=== PATIENT | male | born 1960 | race Caucasian/White ===

== ENCOUNTER 2017-07-18 10:56 | Emergency (ER) | payer MEDICAID ==
[~2017-07-18] VITALS: Ht 172.7 cm; Wt 106.6 kg
[~2017-07-18 10:56] MED LIST: ALPR0.254 PO; AMLO10TA2 PO; LORA1TAB12 PO; OMEP20CA74 PO
[2017-07-18 11:00] VITALS: BP 134/96
[2017-07-18 11:42] LABS: Basophils # (auto) 0.1 uL; Basophils % (auto) 1.1 % (0.0-2.0); Eosinophils # (auto) 0.2 uL; Eosinophils % (auto) 3.1 % (0.0-7.0); Hematocrit 48.6 % (41.0-53.0); Hemoglobin 16.2 g/dL (13.5-17.5); Lymphocytes # (auto) 1.4 uL; Lymphocytes % (auto) 24.6 % (10.0-50.0); Mean Corpuscular Hemoglobin 29.2 pg (28.0-32.0); Mean Corpuscular Hgb Conc. 33.3 g/dL (32.0-36.0); Mean Corpuscular Volume 87.8 fL (80.0-100.0); Monocytes # (auto) 0.5 uL; Monocytes % (auto) 8.3 % (0.0-12.0); Neutrophils # (auto) 3.5 uL; Neutrophils % (auto) 62.9 % (37.0-80.0); Nucleated Red Blood Cells % 0.1 %; Platelet Count (auto) 222 10^3/uL (140-450); Red Blood Cells 5.53 10^6/uL (4.5-5.90); Red Cell Distribution Width 13.5 % (11.8-14.3); White Blood Cell 5.6 10^3/uL (4.4-10.8)
[2017-07-18 12:06] LABS: Alanine Aminotransferase 26 U/L (16-61); Albumin 4.1 g/dL (3.4-5.0); Alkaline Phosphatase 56 U/L (45-117); Anion Gap 10 (5-15); Aspartate Aminotransferase 15 U/L (15-37); BUN/Creatinine Ratio 12.9; Bilirubin, Total 0.3 mg/dL (0.2-1.0); Blood Urea Nitrogen 15 mg/dL (7-18); Calcium 8.5 mg/dL (8.5-10.1); Carbon Dioxide 26 mmol/L (21-32); Chloride 109 mmol/L (98-107); GFR African American 83 mL/min; GFR Non-African American 69 mL/min; Glucose 83 mg/dL (74-106); Potassium 3.9 mmol/L (3.5-5.1); Sodium 145 mmol/L (136-145); Total Protein 8.3 g/dL (6.4-8.2)
== END 2017-07-18 18:19 | disposition left against medical advice (07) ==
LOC: ER 10:56
DX: R07.89 Other chest pain (principal); I10 Essential (primary) hypertension; Z79.899 Other long term (current) drug therapy; Z88.8 Allergy status to other drugs, medicaments and biological substances
CPT/HCPCS: 36415; 71020; 80053; 84484; 85025; 93005

== ENCOUNTER 2019-05-18 10:09 | Inpatient (IN) | payer MEDICARE, MEDICAID ==
[~2019-05-18] VITALS: Ht 172.7 cm; Wt 116.0 kg
[~2019-05-18 10:09] MED LIST changes: -ALPR0.254 PO; -AMLO10TA2 PO; +BACL10TA PO; +BUPR100T14 PO; +CLON0.1T PO; -LORA1TAB12 PO; +OME20T PO; -OMEP20CA74 PO; +SUMA50TA2 PO
[2019-05-18] MEDS ORDERED: ONDANSETRON HCL 4 MG/2 ML VIAL IV ONE (11:15)
[2019-05-18] MEDS ORDERED: MORPHINE SULFATE 4 MG/ML SYR/VIAL IV ONE (11:15)
[2019-05-18 11:20] LABS: Basophils # (auto) 0.1 uL; Eosinophils # (auto) 0.1 uL; Eosinophils % (auto) 1.2 % (0.0-7.0); Hematocrit 47.8 % (41.0-53.0); Hemoglobin 16.3 g/dL (13.5-17.5); Lymphocytes # (auto) 1.6 uL; Lymphocytes % (auto) 19.8 % (10.0-50.0); Mean Corpuscular Hemoglobin 29.7 pg (28.0-32.0); Mean Corpuscular Hgb Conc. 34.2 g/dL (32.0-36.0); Mean Corpuscular Volume 86.8 fL (80.0-100.0); Monocytes # (auto) 0.5 uL; Monocytes % (auto) 6.6 % (0.0-12.0); Neutrophils # (auto) 5.9 uL; Neutrophils % (auto) 71.4 % (37.0-80.0); Platelet Count (auto) 225 10^3/uL (140-450); Red Blood Cells 5.51 10^6/uL (4.5-5.90); Red Cell Distribution Width 13.5 % (11.8-14.3); White Blood Cell 8.2 10^3/uL (4.4-10.8)
[2019-05-18] MEDS ORDERED: KETOROLAC TROMETH 30 MG/ML 1ML VIAL IV ONE (11:45)
[2019-05-18] MEDS ORDERED: PROMETHAZINE HCL 25 MG/ML 1ML IV ONE (11:45)
[2019-05-18 11:53] LABS: Albumin 3.9 g/dL (3.4-5.0); BUN/Creatinine Ratio 19.5; Bilirubin, Total 0.7 mg/dL (0.2-1.0); Potassium 4.1 mmol/L (3.5-5.1); Total Protein 8.4 g/dL (6.4-8.2)
[2019-05-18 13:16] LABS: Urine Bacteria NONE SEEN /hpf (None Seen); Urine Blood Negative /uL (Negative); Urine Mucus FEW (None Seen); Urine WBC <1 /hpf (0 - 3)
[2019-05-18] MEDS ORDERED: ACETAMINOPHEN 500 MG TAB PO PRN (14:15)
[2019-05-18] MEDS ORDERED: MORPHINE SULF INJ 2 MG/ML SYRINGE 1ML IV PRN (14:15)
[2019-05-18] MEDS ORDERED: LABETALOL HCL 5 MG/ML ML 20ML VIAL IV PRN (14:15)
[2019-05-18] MEDS: D5W/ SOD CHL 0.9%/KCL 20MEQ 1,000 ML IV SCH (15:16)
--- NOTE | 2019-05-18 16:12 | NUR ---
Telemetry admit from ER MARIA GUADALUPE ELLIS admitted to Telemetry unit after SBAR received. Patient oriented to Promise Choi, primary RN, unit, room, bed, and unit policies regarding patient care and visiting hours. Patient now on continuous telemetry monitoring, tele box # 3 and telemetry reading on arrival to unit is . Patient placed on bedside oxygen, weighed by bedscale and encouraged to call if they need something. All questions and concerns addressed, patient verbalized understanding. Note:
[2019-05-18 16:15] VITALS: BP 157/84
--- NOTE | 2019-05-18 16:15 | NUR ---
ASSESSMENT NOTE PATIENT IS ALERT ORIENTED X4, ABLE TO SELF REPOSITION AND VERBALIS HIS DEMANDS, HEAD OF BED ELEVATED, PT HAS A LARGE SOFT ABDOMEN CONTINUE HAVING A TOLERABLE ACHING PAIN AT THIS TIME 12/31, TAKING OVER THE PHONE WITH HIS SISTER ELVIA IN [place]
[2019-05-18 16:16] VITALS: BP 157/84
--- NOTE | 2019-05-18 17:10 | NUR ---
PT IS IN SEVERE PAIN AT THE EPIGASTRIC AREA, DUE FOR MORPHINE AT 7 PM, PAGE ABDOUL FULTON FISH PACKER
--- NOTE | 2019-05-18 17:21 | NUR ---
ABDOUL SUPERVISOR TYPE DISK QUALITY CONTROL CALLED BACK, MADE AWARE THAT PT IN SEVERE PAIN, NEW ORDER SOD CHERY OBTAIN, KEEP PT NPO
[2019-05-18] MEDS: HYDROmorphone HCL 2 MG/ML VL IV PRN ×2 (17:56→21:05)
[2019-05-18 19:07] LABS: INR 0.94 (0.9-1.15)
--- NOTE | 2019-05-18 19:45 | NUR ---
Opening Shift Note Assumed care of patient, awake and alert. No S/S of distress/SOB noted. Bed is in lowest locked position with bed rails up x2 and call light is within reach of the patient. Instructed on POC and to call for assist PRN.
[2019-05-18] MEDS: ONDANSETRON HCL 4 MG/2 ML VIAL IV PRN (21:11)
[2019-05-18] MEDS: FAMOTIDINE (10MG/ML) 2ML VL IV SCH (21:33)
[2019-05-18] MEDS: metroNIDAZOLE 500MG/100ML 100 ML IV SCH (21:33)
[2019-05-18 21:36] VITALS: BP 153/91
[2019-05-19] MEDS: HYDROmorphone HCL 2 MG/ML VL IV PRN ×7 (00:06→23:07)
[2019-05-19] MEDS: D5W/ SOD CHL 0.9%/KCL 20MEQ 1,000 ML IV SCH ×2 (00:13→07:01)
--- NOTE | 2019-05-19 04:16 | NUR ---
VACCINATION UPDATED: Asked patient at this time if he would like the flu and pneumonia vaccination on this visit. Patient stated "I already got the flu shot this year in February." Asked patient if he has received the Pneumonia vaccine and if he would want one. Patient stated "I dont know if I got that one. I dont want to add more things on top of what I have going now right now. Ill wait on that one." Educated patient about the use for vaccination but advised patient that if he changed his mind to let the RN know. Patient verbalized understanding.
[2019-05-19 05:00] VITALS: BP 145/83
[2019-05-19] MEDS: metroNIDAZOLE 500MG/100ML 100 ML IV SCH ×3 (06:55→22:05)
--- NOTE | 2019-05-19 07:15 | NUR ---
Opening Shift Note: Assumed care of patient, awake and alert. No S/S of distress/SOB. Patient states pain level 9/10. Patient educated on medication timing and when next pain medication is available. Bed in lowest locked position, side rails up x 2, call light within reach. Patient Instructed on POC and to call for assist PRN, will continue to monitor for changes Q1hr and PRN.
[2019-05-19 09:00] VITALS: BP 142/87
--- NOTE | 2019-05-19 09:57 | NUR ---
Patient refused 1000 Wellbutrin. Per Patient "I don't take that at home. I don't want it here."
[2019-05-19] MEDS: buPROPion HCL 100 MG TAB PO SCH (10:00)
[2019-05-19] MEDS ORDERED: LEVOFLOXACIN 500MG 100 ML IV SCH (10:00)
[2019-05-19] MEDS: FAMOTIDINE (10MG/ML) 2ML VL IV SCH ×2 (10:11→22:05)
[2019-05-19] MEDS: amLODIPine BESYLATE 5 MG TAB PO SCH (10:16)
--- NOTE | 2019-05-19 11:02 | NUR ---
Dr. Hayes at bedside. New orders placed. Will continue to monitor.
--- NOTE | 2019-05-19 11:30 | NUR ---
Patient angry over new medications and frequency. Patient educated on reasoning behind medication order. Patient states "I need the charge nurse now."
--- NOTE | 2019-05-19 11:42 | NUR ---
Charge nurse at bedside. Explained to patient the frequency for the medication. Patient then states "I need to speak to the storage facility housekeeper."
--- NOTE | 2019-05-19 11:59 | NUR ---
Ty sup paged.
--- NOTE | 2019-05-19 12:10 | NUR ---
House sup called back. States that nothing can be changed without the doctor. Doctor notified or patients concerns.
[2019-05-19] MEDS: SODIUM CHLORIDE 0.9% 1,000 ML IV SCH ×2 (12:54→20:25)
[2019-05-19 13:00] VITALS: BP 138/90
[2019-05-19 17:00] VITALS: BP_SYST 138; BP_SYST 140; BP_DIAS 86; BP_DIAS 90
--- NOTE | 2019-05-19 19:05 | NUR ---
Closing note: Patient laying in bed, no S/S of distress/SOB or pain at this time. Care endorsed to NOC nurse.
[2019-05-19] MEDS: ONDANSETRON HCL 4 MG/2 ML VIAL IV PRN (19:06)
--- NOTE | 2019-05-19 21:00 | NUR ---
OXYGEN SATURATION: Patients oxygen saturation was 89% on room air. Placed patient on 2 liters nasal cannula and educated patient about the need to wear nasal cannula to keep oxygen saturations above 90%. Patient verbalized understand and tolerated well. No S/S of distress SOB noted at this time.
[2019-05-19 22:00] VITALS: BP 143/89
--- NOTE | 2019-05-20 01:55 | NUR ---
Shivers and SOB: Patient called for assistance out side of door. Went to assist patient back into bed. Patient was short of breath while walking to the restroom and patient stated that he had some shivers. Vital signs assessed temperature 99.9, oxygen 94% at 3 liters, heart rate 94, blood pressure at 138/78. Applied ice pack to patients head and instructed to call if he feels SOB again or trouble ambulating. Provided patient with a longer nasal cannula oxygen to use to the restroom.
[2019-05-20] MEDS: SODIUM CHLORIDE 0.9% 1,000 ML IV SCH ×4 (02:03→21:50)
[2019-05-20] MEDS: HYDROmorphone HCL 2 MG/ML VL IV PRN ×6 (03:08→20:25)
[2019-05-20] MEDS: ONDANSETRON HCL 4 MG/2 ML VIAL IV PRN ×2 (03:08→20:25)
--- NOTE | 2019-05-20 03:27 | NUR ---
Temperature: Patients temperature was 100.1 and patient had complaints of feeling hot and cold. Cooling measures implemented. Applied ice packs to arm pits back of neck and groin. To reassess patients temperature in an hour. Removed blankets from patient and applied one sheet. Educated patient reasoning for cooling measures. Patient verbalized understanding and tolerated well.
[2019-05-20 04:30] VITALS: BP 134/78
--- NOTE | 2019-05-20 04:57 | NUR ---
Temperature now 99.1 Patient tolerated well. Ice packs removed.
--- NOTE | 2019-05-20 05:12 | NUR ---
CHG BATH PERFORMED: Cleaned patient with CHG bath and changed patients gown and sheets on bed. Patient tolerated well. No s\s of distress sob or pain noted. Resting in bed with breaths even and unlabored.
[2019-05-20] MEDS: metroNIDAZOLE 500MG/100ML 100 ML IV SCH ×3 (05:54→21:33)
[2019-05-20] MEDS ORDERED: POVIDONE IODINE 5% TOPICAL CREAM TOP ONE (07:47)
--- NOTE | 2019-05-20 07:50 | NUR ---
CHEST XRAY AND LABS DONE. PT BROUGHT DOWN TO PRE[facility] PER BED ACCOMPANIED BY IRON LAUNDER OPERATOR AND RESEARCH AGRICULTURAL ENGINEER IN A STABLE CONDITION. REPORT GIVEN TO KIRT RICHARDS OF PRE OP.
[2019-05-20] MEDS ORDERED: ceFAZolin 1GM/50ML 50 ML IV ONE (08:22)
[2019-05-20] MEDS ORDERED: LABETALOL HCL 5 MG/ML 4ML SYRINGE IV PRN (08:45)
[2019-05-20] MEDS ORDERED: SUCCINYLCHOLINE CHLORIDE 20 MG/ML 10ML VIAL IV ONE (08:45)
[2019-05-20] MEDS ORDERED: ONDANSETRON HCL 4 MG/2 ML VIAL IV PRN (08:45)
[2019-05-20] MEDS ORDERED: MORPHINE SULFATE 4 MG/ML SYR/VIAL IV PRN (08:45)
[2019-05-20] MEDS ORDERED: KETOROLAC TROMETH 30 MG/ML 1ML VIAL IV ONE (08:45)
[2019-05-20] MEDS ORDERED: ePHEDrine SULFATE 50 MG/ML AMP IV PRN (08:45)
[2019-05-20] MEDS ORDERED: MIDAZOLAM HCL 1MG/1ML-2 ML VIAL IV PRN (08:45)
--- NOTE | 2019-05-20 09:00 | NUR ---
UNABLE TO OBTAIN 0900 VITALS. PT IS DOWNSTAIRS IN OR AT THIS TIME .
[2019-05-20] MEDS ORDERED: fentaNYL CITRATE 100 MCG/2 ML VL ONE (09:02)
[2019-05-20] MEDS ORDERED: MEPERIDINE HCL (50 MG/ML) 1 ML VIAL ONE (09:03)
[2019-05-20] MEDS ORDERED: MIDAZOLAM HCL 1MG/1ML-2 ML VIAL ONE (09:03)
[2019-05-20] MEDS ORDERED: DexAMETHasone SOD PHOS 10MG/1ML VIAL INJ ONE (09:16)
[2019-05-20] MEDS ORDERED: PROPOFOL 10 MG/ML 20 ML IV ONE (09:21)
[2019-05-20] MEDS ORDERED: ROCURONIUM 10MG/ML 10ML VIAL IV ONE (09:22)
[2019-05-20] MEDS ORDERED: METOCLOPRAMIDE HCL 5MG/ml INJ 2ml VIAL ONE (09:26)
[2019-05-20 09:42] LABS: Basophils # (auto) 0.1 uL; Basophils % (auto) 0.5 % (0.0-2.0); Eosinophils # (auto) 0.1 uL; Eosinophils % (auto) 0.5 % (0.0-7.0); Hematocrit 44.1 % (41.0-53.0); Hemoglobin 14.7 g/dL (13.5-17.5); Lymphocytes # (auto) 1.3 uL; Lymphocytes % (auto) 10.8 % (10.0-50.0); Mean Corpuscular Hemoglobin 29.5 pg (28.0-32.0); Mean Corpuscular Hgb Conc. 33.4 g/dL (32.0-36.0); Mean Corpuscular Volume 88.3 fL (80.0-100.0); Monocytes % (auto) 8.6 % (0.0-12.0); Neutrophils # (auto) 9.4 uL; Neutrophils % (auto) 79.6 % (37.0-80.0); Platelet Count (auto) 191 10^3/uL (140-450); Red Blood Cells 4.99 10^6/uL (4.5-5.90); Red Cell Distribution Width 13.8 % (11.8-14.3); White Blood Cell 11.8 10^3/uL (4.4-10.8)
[2019-05-20] MEDS ORDERED: LEVOFLOXACIN 750MG 150 ML IV SCH (10:00)
[2019-05-20] MEDS: buPROPion HCL 100 MG TAB PO SCH (10:00)
[2019-05-20 10:09] LABS: BUN/Creatinine Ratio 14.7; Calcium 8.2 mg/dL (8.5-10.1); Potassium 3.9 mmol/L (3.5-5.1)
--- NOTE | 2019-05-20 10:52 | NUR ---
SPOKE WITH PATIENTS SISTER: PATIENTS SISTER HAD COMPLAINED ABOUT PATIENT NOT BEING SEEN BY SURGEON AND PATIENT PAIN. SISTER ELVIA WAS CALLED AND UPDATED ON PATIENTS CURRENT SITUATION INCLUDING PATIENT BEING IN SURGERY AT THIS TIME. SHE WAS INFORMED THAT PRIMARY RN AMITA WOULD CALL HER WITH A MORE THOROUGH UPDATE ONCE PATIENT RETURNS FROM SURGERY. WILL PROVIDE PRIMARY RN WITH SISTER ELVIA'S PHONE NUMBER
--- NOTE | 2019-05-20 11:45 | NUR ---
MARI RICHARDS FROM [facility] CALLED BY PHONE AND GAVE REPORT.
--- NOTE | 2019-05-20 11:50 | NUR ---
PT RETURNED FROM SURGERY PER BED S/P LAP RAINE WITH JOSE DRAIN WITH SMALL AMOUNT OF SANGUINOUS DRAINAGE. PT NOTED TO BE AWAKE, ALERT AND ORIENTED X4 AND PT STATED THAT HE WS STILL HAVING PAIN. PT WAS JUST MEDICATED BY MARI RICHARDS IN [facility] PRIOR TO PT'S TRANSFER BACK TO HIS ROOM. PT WITH 2 ABDOMINAL DRESSING OF DRY GAUZE AND TRANSPARENT DX AND NO DRAINAGE NOTED FROM THE SITES. ABDOMINAL BINDER APPLIED TO THE SITE. VSS TAKEN AND WAS STABLE. FURTHER REPORT RECEIVED FROM MARI AT BEDSIDE. WILL CONTINUE TO MONITOR PT.
--- NOTE | 2019-05-20 12:15 | NUR ---
PT'S SISTER. ELVIA CALLED AND WAS INFORMED OF PT'S PRESENT CONDITION AND ANSWERED HER QUESTIONS AND CONCERN. HIS EX DARNELL ALSO CALLED BEFORE AND WAS UPDATED RE PT' CONDITION. WILL CONTINUE TO MONITOR PT.
[2019-05-20] MEDS: FAMOTIDINE (10MG/ML) 2ML VL IV SCH ×2 (12:26→21:33)
[2019-05-20] MEDS: HYDROcodone-ACET 5/325MG TAB PO PRN (12:28)
[2019-05-20 13:00] VITALS: BP 140/87
[2019-05-20] MEDS: amLODIPine BESYLATE 5 MG TAB PO SCH (14:04)
--- NOTE | 2019-05-20 14:22 | NUR ---
NUTRITION ASSESSMENT NOTES Please refer to link notes of nutrition screen form filed under the intervention section of the plan of care for further details. Est. Needs: 1750 kcal to 2300 kcal (15-20 kcal/kgBW), 70 gms to 86 gms pro (1.0-1.2 gms/kgIBW: 70 kg). Will continue to monitor pertinent labs and reassess nutrient need prn Thank you. Addendum: 05/20/19 at [address] Amended: Links added.
[2019-05-20] MEDS ORDERED: NEOSTIGMINE 1 MG/ML INJ (10mg/10ML VIAL) IV ONE (15:01)
[2019-05-20] MEDS ORDERED: ceFAZolin 1GM VL IV ONE (15:01)
[2019-05-20] MEDS ORDERED: GLYCOPYRROLATE 0.2 MG/ML 1ML VIAL IV ONE (15:01)
--- NOTE | 2019-05-20 15:14 | NUR ---
Patient was screaming for help and complaining of severe abdominal pain, rates it 06/02. Twila Soil Sampler at bedside attempting to calm patient. Will medicate per MD orders.
[2019-05-20 17:00] VITALS: BP 139/87
--- NOTE | 2019-05-20 19:15 | NUR ---
assumed care, pt. awake, no c/o pain and nausea at this time, 2 small dressings on abdominal area with old blood stain, sonya draining with serous sanguinous output, no sob.
[2019-05-20 22:00] VITALS: BP 117/76
[2019-05-21] MEDS: HYDROmorphone HCL 2 MG/ML VL IV PRN ×2 (00:35→05:04)
[2019-05-21] MEDS: HYDROcodone-ACET 5/325MG TAB PO PRN ×3 (01:37→23:23)
[2019-05-21] MEDS: SODIUM CHLORIDE 0.9% 1,000 ML IV SCH ×3 (02:49→15:02)
[2019-05-21 05:00] VITALS: BP 133/87
[2019-05-21] MEDS: ONDANSETRON HCL 4 MG/2 ML VIAL IV PRN ×2 (05:04→11:20)
--- NOTE | 2019-05-21 05:50 | NUR ---
pt. c/o chest pain and lt. shoulder pain 05/02, v/s as follows, bp-167/83, p-104, r-25, t- 97.6, ekg done, carolynn nurse and fabric coating supervisor notified.
--- NOTE | 2019-05-21 05:54 | NUR ---
nitro. 0.4mg given sl as ordered, to keep monitor.
--- NOTE | 2019-05-21 05:59 | NUR ---
pain still at 8/10, 2nd dose of azul. given. sl, bp-127/80, p-102, to keep monitor.
--- NOTE | 2019-05-21 06:04 | NUR ---
pt. pain at 910, 3rd dose of nitro. given sl, bp -140/75, p-101, 92%, to keep monitor.
[2019-05-21] MEDS: metroNIDAZOLE 500MG/100ML 100 ML IV SCH ×4 (06:06→21:34)
--- NOTE | 2019-05-21 06:12 | NUR ---
pt. still having cp 03/02, morpine 2mg. given iv as ordered, bp- 132/72.
[2019-05-21] MEDS: MORPHINE SULF INJ 2 MG/ML SYRINGE 1ML IV PRN ×2 (06:13→06:50)
[2019-05-21 06:20] LABS: Basophils # (auto) 0 uL; Eosinophils # (auto) 0 uL; Hematocrit 39.4 % (41.0-53.0); Hemoglobin 13.1 g/dL (13.5-17.5); Lymphocytes # (auto) 0.6 uL; Lymphocytes % (auto) 4.8 % (10.0-50.0); Mean Corpuscular Hgb Conc. 33.2 g/dL (32.0-36.0); Mean Corpuscular Volume 87.4 fL (80.0-100.0); Monocytes # (auto) 0.6 uL; Monocytes % (auto) 4.4 % (0.0-12.0); Neutrophils # (auto) 12.3 uL; Neutrophils % (auto) 90.8 % (37.0-80.0); Nucleated Red Blood Cells % 0.1 %; Platelet Count (auto) 193 10^3/uL (140-450); Red Blood Cells 4.51 10^6/uL (4.5-5.90); Red Cell Distribution Width 13.8 % (11.8-14.3); White Blood Cell 13.6 10^3/uL (4.4-10.8)
--- NOTE | 2019-05-21 06:50 | NUR ---
pt. pain 04/02, 2nd dose of morphine iv given as ordered, bp-126/67, hr- 101, sats at 96%, to keep monitor.
--- NOTE | 2019-05-21 07:00 | NUR ---
pt. trop is normal, to sol hospitalist.
--- NOTE | 2019-05-21 07:05 | NUR ---
hospitalist called back, made odered and carried out.
--- NOTE | 2019-05-21 07:51 | NUR ---
Opening Note Assumed care of patient, he is A & O x4, patient is uncomfortable at this time, slumped in bed, oxygen mask on at 12LPM, O2 sat at 99%, patient is c/o continued chest pain from this morning, patient states "it never went away". EKG was done, Troponin was drawn, morphine and nitro were given per protocol. Patient states it is "about a 9/10 pain, it is in the left lower chest and radiates to the shoulder." This RN sat patient up with HOB at 90 degrees to help breathing, closed abdominal binder and emptied 85 ml of brown liquid from JOSE drain. This RN will notify Dr. Hayes. Bed is in lowest, locked position call light within reach, bed rails up x2. Will continue to monitor Q1h and PRN.
--- NOTE | 2019-05-21 07:55 | NUR ---
Notified Dr. Hayes of patient continuing chest pain, and SOB. Orders received, verified and read back, for US of bilateral lower extremities, CT angio chest with contrast, and medications. Will medicate per orders. Addendum: 05/21/19 at 1434 by CHERRY GARZA RN RN The orders for US of bilateral lower extremities , CT angio chest with contrast was taken at 1030am.
[2019-05-21] MEDS ORDERED: cefTRIAXone 1GM/50ML D5W 50 ML IV ONE (08:30)
[2019-05-21] MEDS ORDERED: LORazepam 2MG/ML-1ML VIAL IV ONE (08:45)
[2019-05-21 09:00] VITALS: BP 132/80
[2019-05-21] MEDS: buPROPion HCL 100 MG TAB PO SCH (10:00)
--- NOTE | 2019-05-21 10:30 | NUR ---
Notified Dr. Hayes of D-Dimer 2.17
[2019-05-21] MEDS: amLODIPine BESYLATE 5 MG TAB PO SCH (11:18)
[2019-05-21] MEDS: FAMOTIDINE (10MG/ML) 2ML VL IV SCH ×2 (11:19→21:34)
[2019-05-21] MEDS: MORPHINE SULFATE 4 MG/ML SYR/VIAL IV PRN ×2 (11:20→21:35)
[2019-05-21 13:00] VITALS: BP 139/86
--- NOTE | 2019-05-21 13:25 | NUR ---
Report Given to Christine RICHARDS. Endorsed care to Christine RICHARDS, patient with no s/s of distress at this time. Notified RN that patient is pending a CT angio, needs a 20G IV for the procedure, Joyce RICHARDS resource, tried once for IV. Patient still needs procedure. Notified RN to notify Dr. Hayes if the US of Lower extremities or CT angio results come back positive.
--- NOTE | 2019-05-21 13:38 | NUR ---
RECEIVED REPORT FROM DALLIN RICHARDS.
--- NOTE | 2019-05-21 13:50 | NUR ---
ASSESSED PT, APPROX 85 MLS DARK BROWN LIQUID DRAINAGE NOTED IN RIGHT SIDED JOSE DRAIN. MINIMAL SEROSANGUINEOUS DRAINAGE NOTED ON ALL 3 ABDOMINAL DRESSINGS, UPPER MIDLINE, LOWER MIDLINE AND RIGHT ABDOMINAL INCISION FOR JOSE DRAIN. ABDOMINAL BINDER IN PLACE.
[2019-05-21] MEDS ORDERED: IOHEXOL 350 MG/ML 100ML IJ ONE (13:59)
--- NOTE | 2019-05-21 14:35 | NUR ---
Attempted IV insertion twice with vein finder using sterile technique per radiology request. Unsuccessful. Received in report, IV attempted by Joyce RICHARDS earlier, will notify radiology. Patient tolerated procedure well.
--- NOTE | 2019-05-21 14:47 | NUR ---
ASKED SANDRA WALKER TO ASSIST WITH IV.
--- NOTE | 2019-05-21 15:30 | NUR ---
DENISE FLORES INSERTED IV RFA 20 G. CALLED RADIOLOGY AND NOTIFIED THEM PT IS READY FOR CT ANGIO, THEY REPORT THEY WILL BE UP SOON FOR PATIENT.
--- NOTE | 2019-05-21 17:30 | NUR ---
100 MLS DARK BROWN FLUID DRAINED FROM JOSE DRAIN. SMALL AMOUNT OF NEW BLOOD NOTED AROUND JOSE DRAIN SITE. APPLIED PRESSURE BY ADJUSTING ABDOMINAL BINDER. WILL CONTINUE TO MONITOR. Addendum: 05/21/19 at 1815 by DREW BETH RN MARKED DRAINAGE ON DRESSING.
--- NOTE | 2019-05-21 19:45 | NUR ---
assumed care, pt. awake, having his dinner, no c/o pain, dressing on abdominal area dry and intact, with abdominal binder in place, no sob.
[2019-05-21 22:00] VITALS: BP 131/83
[2019-05-22] MEDS: SODIUM CHLORIDE 0.9% 1,000 ML IV SCH ×4 (00:30→23:11)
[2019-05-22] MEDS: MORPHINE SULFATE 4 MG/ML SYR/VIAL IV PRN ×3 (03:43→17:22)
[2019-05-22 05:00] VITALS: BP 143/89
[2019-05-22] MEDS: HYDROcodone-ACET 5/325MG TAB PO PRN (05:24)
[2019-05-22] MEDS: metroNIDAZOLE 500MG/100ML 100 ML IV SCH ×3 (05:24→23:11)
[2019-05-22] MEDS: ONDANSETRON HCL 4 MG/2 ML VIAL IV PRN (06:30)
[2019-05-22 09:00] VITALS: BP 127/73
--- NOTE | 2019-05-22 09:08 | NUR ---
MD Lei rounded on pt updated pt on plan of care for possible discharge tomorrow, pt expressed concern over not being able to take care of sonya drain at home due to old carpal tunnel injury, education provided advised to do wound care sonya teaching prior to discharge, pt also verbalized concern over pain in shoulders (old rotator cuff injury) md lei ordered ct scan of shoulders, pt uodated that cardiac workup for chest pain was all negative pt verbalized understanding, md lei will call md wharton surgeon to check on sonya drainage prior to discharge, new orders noted and carried out
[2019-05-22] MEDS: buPROPion HCL 100 MG TAB PO SCH (09:17)
--- NOTE | 2019-05-22 09:30 | NUR ---
0930 noted lfa iv infiltrated and leaking rfa iv still patent
[2019-05-22] MEDS: FAMOTIDINE (10MG/ML) 2ML VL IV SCH ×2 (10:05→23:11)
[2019-05-22] MEDS: amLODIPine BESYLATE 5 MG TAB PO SCH (10:06)
[2019-05-22] MEDS: cefTRIAXone 1GM/50ML D5W 50 ML IV SCH (10:08)
[2019-05-22] MEDS: MORPHINE SULF INJ 2 MG/ML SYRINGE 1ML IV PRN (11:04)
[2019-05-22] MEDS: NITROGLYCERIN 0.4 MG SL TAB SL PRN ×3 (11:06→11:24)
--- NOTE | 2019-05-22 11:15 | NUR ---
pt called to report chest pain 10/10 tightness in chest sob, switched pt to o2 mask 10 lpm gave three doses on nitro q5 minutes apart, also gave 2mg morphine for chest pain, pt reports no relief pt hyperventalting, .ant lei called made aware of chest pain per md pt having anxiety did same issue yesterday gave order for x1 dose ativan 1mg iv for anxiety
[2019-05-22] MEDS ORDERED: LORazepam 2MG/ML-1ML VIAL ONE (11:22)
[2019-05-22] MEDS ORDERED: LORazepam 2MG/ML-1ML VIAL IV ONE (11:30)
--- NOTE | 2019-05-22 11:34 | NUR ---
at pt bedside pt still has o2 mask on pt appears sleeping snoring is herd no chest pain noted 02 at 94%
--- NOTE | 2019-05-22 11:52 | NUR ---
pt still noted sleeping pulse ox 95% on mask
[2019-05-22 13:00] VITALS: BP 115/78
[2019-05-22] MEDS: ALPRAZolam 0.5 MG TAB PO SCH ×2 (13:45→21:55)
--- NOTE | 2019-05-22 13:58 | NUR ---
pt asleep verbally arousable slighlty confused reorientated pt x4 pt started to complain of feeling anxious scheduled xanax given as ordered
--- NOTE | 2019-05-22 14:49 | NUR ---
Nutrition Follow-up Notes Wt.: 117.2 as of yesterday. Pt's on oxygen via nasal cannula, asleep, no immediate family member at bedside during rounds this morning. Pt's s/p lap beht (05/20/19), no signs of distress noted earlier, currently on Clear Liquid diet with poor PO intake aeb 50% ave. consumed meals (x5) in last 2 days. Noted pt's for active Surgical consult. Est. Needs: 1750 kcal to 2300 kcal (15-20 kcal/kgBW), 70 gms to 86 gms pro (1.0-1.2 gms/kgIBW: 70 kg). Will continue to monitor pertinent labs and reassess nutrient need prn Labs: No New labs today except for Trop I 0.015 wnl; 05/20/19 Cl 108 H, Ca 8.2 L Skin: Frandy scale 19, low risk, pt's upper medial abdomen incision dry and intact per tube builder airplane. GI: Pt's no bowel activity since 05/18/19 per tube builder airplane. PES: Altered nutrition related lab values r/t current/chronic medical condition aeb hyperchloremia, hypocalcemia. Increased nutrient needs r/t altered GI functions aeb Nonspecific abdominal pain,Gallbladder disease, s/p lap beth, on Clear Liquid diet Obesity r/t food intake more than body requirement aeb 164% IBW, BMI 38.5 kg/m2 and increased body adiposity Will continue to monitor PO intake, pertinent labs, skin status and weight trends. F/u in 2 to 3 days. Additional Recommendation: 1.) Advance gradually oral diet when medically appropriate. 2.) Consider close supervision and feeding assistance prn during meals.3.) Refer to RD for further nutrition educ. and weight monitoring upon discharge. 4.) Continue current plan of care.
--- NOTE | 2019-05-22 15:34 | NUR ---
pt ex felisa at bedside concerned over pt being slightly drowsy, went to pt room pt alert orientated x4 states his chest pain feels much better pulse ox 98% lowered mask to 4 lpm on mask pulse ox 96%
[2019-05-22 17:00] VITALS: BP 144/82
--- NOTE | 2019-05-22 19:06 | NUR ---
noted pt abdominal dressing saturated changed dressing 100ml sonya drainage noted sol wharton to inform of sonya drain not retaining suction
--- NOTE | 2019-05-22 19:17 | NUR ---
hospitalist called back juan francisco informed of sonya drain no retaining suction
--- NOTE | 2019-05-22 21:30 | NUR ---
JOSE DRAIN DRESSING WHILE CHANGING JOSE DRESSING IT WAS DISCOVERED THAT THE TUBING OF THE JOSE DRAIN HAS A HOLE. APPLIED TAPE AND GAUZE AROUND HOLE ON THE TUBING. DRAIN IS NOW HOLDING SUCTION. ALL SURROUNDING DRESSING CHANGED AND NEW ABD BINDER APPLIED. PATIENT TOLERATED WELL. WILL CONTINUE TO MONITOR.
[2019-05-22 22:00] VITALS: BP 160/97
--- NOTE | 2019-05-22 22:00 | NUR ---
IV removal IV infiltrated and DC'd with clean sterile technique, catheter fully intact. Pressure dressing applied to site. Patient tolerated well.
--- NOTE | 2019-05-22 22:30 | NUR ---
IV insertion IV access obtained, via clean sterile technique by inserting 22 gauge catheter at left hand after 2 attempt(s). IV secured properly. No trauma to site. Patient tolerated well.
[2019-05-23] MEDS: SODIUM CHLORIDE 0.9% 1,000 ML IV SCH ×4 (03:10→23:24)
[2019-05-23 05:00] VITALS: BP 150/89
[2019-05-23] MEDS: metroNIDAZOLE 500MG/100ML 100 ML IV SCH ×3 (05:42→21:48)
[2019-05-23] MEDS: ALPRAZolam 0.5 MG TAB PO SCH ×3 (05:43→21:49)
[2019-05-23] MEDS: MORPHINE SULFATE 4 MG/ML SYR/VIAL IV PRN ×3 (07:09→23:02)
--- NOTE | 2019-05-23 08:20 | NUR ---
Opening Note Assumed care of patient, he is A & O x 4, but fatigued. Patient is on 3L nasal cannula, No s/s of distress at this time. Patient JOSE drain to the right lower quadrant is patent and draining brown liquid, 80 ml emptied at this time, the drain had been taped on the tubing for a hole, and it is clean and dry a this time. POC discussed with patient, he agrees. Bed is in lowest, locked position, call light within reach, bed rails up x2. Will continue to monitor Q1h and PRN.
[2019-05-23 09:00] VITALS: BP 134/79
--- NOTE | 2019-05-23 09:30 | NUR ---
Dr. Hayes at bedside. Will discharge patient tomorrow
[2019-05-23] MEDS: buPROPion HCL 100 MG TAB PO SCH (10:00)
--- NOTE | 2019-05-23 10:50 | NUR ---
Patient IV to the left hand occluded. Discontinued IV, catheter intact, pressure dressing applied. New 22G IV placed to the left forearm. Patient tolerated well.
[2019-05-23] MEDS: FAMOTIDINE (10MG/ML) 2ML VL IV SCH ×2 (10:52→21:49)
[2019-05-23] MEDS: cefTRIAXone 1GM/50ML D5W 50 ML IV SCH (10:52)
[2019-05-23] MEDS: amLODIPine BESYLATE 5 MG TAB PO SCH (10:55)
--- NOTE | 2019-05-23 11:00 | NUR ---
Patient ambulated with PT, drain leaking Suction lost on JOSE, there is a hole in the drain tubing, this RN changed the dressing, closed the who with foam tape. JOSE is patent and draining, suction working. Will continue to monitor.
[2019-05-23 13:05] VITALS: BP 138/86
[2019-05-23] MEDS: ONDANSETRON HCL 4 MG/2 ML VIAL IV PRN ×2 (14:56→23:02)
[2019-05-23 16:52] VITALS: BP 128/80
--- NOTE | 2019-05-23 17:09 | NUR ---
Discharge planning. Referral fro home health was sent to [facility]. Acceptance is pending.
[2019-05-23 22:26] VITALS: BP 146/86
[2019-05-24 05:23] VITALS: BP 127/72
[2019-05-24] MEDS: SODIUM CHLORIDE 0.9% 1,000 ML IV SCH ×2 (06:00→12:30)
[2019-05-24] MEDS: ALPRAZolam 0.5 MG TAB PO SCH ×2 (06:00→14:00)
[2019-05-24] MEDS: metroNIDAZOLE 500MG/100ML 100 ML IV SCH ×2 (06:01→14:00)
--- NOTE | 2019-05-24 06:35 | NUR ---
DRESSINGS CHANGED, PATIENT TOLERATED WELL
[2019-05-24 08:00] VITALS: BP 131/85
[2019-05-24 09:00] VITALS: BP 131/85
[2019-05-24] MEDS: amLODIPine BESYLATE 5 MG TAB PO SCH (09:18)
[2019-05-24] MEDS: MORPHINE SULFATE 4 MG/ML SYR/VIAL IV PRN (09:19)
[2019-05-24] MEDS: buPROPion HCL 100 MG TAB PO SCH (09:19)
[2019-05-24] MEDS: cefTRIAXone 1GM/50ML D5W 50 ML IV SCH (09:19)
[2019-05-24] MEDS: FAMOTIDINE (10MG/ML) 2ML VL IV SCH (09:19)
[2019-05-24 13:04] VITALS: BP 139/88
--- NOTE | 2019-05-24 14:15 | NUR ---
Discharge planning per consult, patient has orders for home health. Patient choose [facility]. Referral was faxed, placed a follow up call, spoke with [facility] and was advised they will accept patient onto services and start of care will be within 24-48 hours upon discharge. Nurse Kayla was advised of dc plan. Patient is being discharged with a JOSE drain. Advised evaluation nurse that an order will be written from JOSE drain management. Addendum: 05/24/19 at 1420 by WAYNE EDDY Amended: Links added.
== END 2019-05-24 17:07 | disposition home health service (06) | DRG 417 ==
LOC: ER 10:10 → TELE 10:11 → TELE-WESTW 16:35 → TELE-EAST 16:56
PROVIDERS: ADMIT Nurse Practitioner Acute Care; ATTEND Family Medicine
PROC: 3E013GC Introduction of Other Therapeutic Substance into Subcutaneous Tissue, Percutaneous Approach (ICD-10-PCS; 2019-05-20)
PROC: 0FT44ZZ Resection of Gallbladder, Percutaneous Endoscopic Approach (ICD-10-PCS; principal; 2019-05-20 09:05)
DX: K80.62 Calculus of gallbladder and bile duct with acute cholecystitis without obstruction (principal); J18.9 Pneumonia, unspecified organism; I10 Essential (primary) hypertension; K21.9 Gastro-esophageal reflux disease without esophagitis; K57.90 Diverticulosis of intestine, part unspecified, without perforation or abscess without bleeding; M19.90 Unspecified osteoarthritis, unspecified site; F43.10 Post-traumatic stress disorder, unspecified; E66.01 Morbid (severe) obesity due to excess calories; G43.909 Migraine, unspecified, not intractable, without status migrainosus; R06.03 Acute respiratory distress; M25.512 Pain in left shoulder; M25.511 Pain in right shoulder; Z88.6 Allergy status to analgesic agent; Z80.42 Family history of malignant neoplasm of prostate; I25.2 Old myocardial infarction; Z68.38 Body mass index [BMI] 38.0-38.9, adult
CPT/HCPCS: 36415; 71045; 71275; 73200; 74176; 76705; 80048; 80053; 81001; 82150; 82247; 83690; 84484; 85025; 85379; 85610; 86850; 86900; 86901; 87040; 87070; 87205; 93005; 93970; 96374; 96375; 96376; 97116; 97163; 97530; G0378; J0330; J0690; J0696; J1100; J1956; J2250; J2405; J2704; J3490

== ENCOUNTER 2019-07-22 16:01 | Emergency (ER) | payer MEDICARE, MEDICAID ==
[~2019-07-22] VITALS: Ht 172.7 cm; Wt 88.9 kg
[~2019-07-22 16:01] MED LIST changes: -BACL10TA PO; -CLON0.1T PO
[2019-07-22 18:04] LABS: Basophils # (auto) 0.1 uL; Eosinophils # (auto) 0.1 uL; Eosinophils % (auto) 2.6 % (0.0-7.0); Hematocrit 46.7 % (41.0-53.0); Hemoglobin 15.8 g/dL (13.5-17.5); Lymphocytes # (auto) 1.2 uL; Lymphocytes % (auto) 22.2 % (10.0-50.0); Mean Corpuscular Hemoglobin 29.2 pg (28.0-32.0); Mean Corpuscular Hgb Conc. 33.8 g/dL (32.0-36.0); Mean Corpuscular Volume 86.3 fL (80.0-100.0); Monocytes # (auto) 0.5 uL; Monocytes % (auto) 9.7 % (0.0-12.0); Neutrophils # (auto) 3.5 uL; Neutrophils % (auto) 64.5 % (37.0-80.0); Nucleated Red Blood Cells % 0.3 %; Platelet Count (auto) 271 10^3/uL (140-450); Red Blood Cells 5.42 10^6/uL (4.5-5.90); Red Cell Distribution Width 13.9 % (11.8-14.3); White Blood Cell 5.4 10^3/uL (4.4-10.8)
[2019-07-22 18:20] LABS: INR 1.01 (0.9-1.15); Partial Thromboplastin Time 31.8 sec (23.64-32.05)
[2019-07-22 18:31] LABS: Albumin 3.6 g/dL (3.4-5.0); Calcium 9.5 mg/dL (8.5-10.1)
[2019-07-22 18:33] LABS: BUN/Creatinine Ratio 11.4
[2019-07-22 18:36] LABS: Bilirubin, Total 0.6 mg/dL (0.2-1.0); Total Protein 8.8 g/dL (6.4-8.2)
[2019-07-22] MEDS ORDERED: IOHEXOL 300 MG/ML 100ML BOTTLE IJ ONE (19:43)
[2019-07-22 22:36] VITALS: BP 127/87
== END 2019-07-22 22:36 | disposition home or self-care (01) ==
LOC: ER 16:01
DX: R10.11 Right upper quadrant pain (principal); R19.7 Diarrhea, unspecified; Z90.49 Acquired absence of other specified parts of digestive tract; E78.5 Hyperlipidemia, unspecified; I10 Essential (primary) hypertension
CPT/HCPCS: 36415; 74177; 80053; 85025; 85610; 85730; 99284; Q9967

== ENCOUNTER → 2019-08-14 | Outpatient (CLI) | payer MEDICARE, MEDICAID ==
[2019-08-14 10:48] LABS: Basophils # (auto) 0.1 uL; Basophils % (auto) 1.3 % (0.0-2.0); Eosinophils # (auto) 0.3 uL; Eosinophils % (auto) 4.3 % (0.0-7.0); Hematocrit 45.8 % (41.0-53.0); Hemoglobin 15.3 g/dL (13.5-17.5); Lymphocytes # (auto) 1.8 uL; Lymphocytes % (auto) 30.3 % (10.0-50.0); Mean Corpuscular Hemoglobin 28.5 pg (28.0-32.0); Mean Corpuscular Hgb Conc. 33.3 g/dL (32.0-36.0); Mean Corpuscular Volume 85.6 fL (80.0-100.0); Monocytes # (auto) 0.7 uL; Monocytes % (auto) 11.6 % (0.0-12.0); Neutrophils # (auto) 3.1 uL; Neutrophils % (auto) 52.5 % (37.0-80.0); Nucleated Red Blood Cells % 0.1 %; Platelet Count (auto) 248 10^3/uL (140-450); Red Blood Cells 5.36 10^6/uL (4.5-5.90); Red Cell Distribution Width 14.1 % (11.8-14.3); White Blood Cell 5.9 10^3/uL (4.4-10.8)
[2019-08-14 11:32] LABS: Albumin 3.6 g/dL (3.4-5.0); Potassium 4.3 mmol/L (3.5-5.1); Uric Acid 6.5 mg/dL (3.5-7.2)
[2019-08-14 11:35] LABS: BUN/Creatinine Ratio 17.2; Bilirubin, Total 0.3 mg/dL (0.2-1.0)
== END | disposition home or self-care (01) ==
LOC: LAB 10:27
PROVIDERS: ATTEND Nurse Practitioner
DX: M10.9 Gout, unspecified (principal); Z87.39 Personal history of other diseases of the musculoskeletal system and connective tissue
CPT/HCPCS: 36415; 80053; 84550; 85025

== ENCOUNTER 2019-09-14 12:17 | Inpatient (IN) | payer MEDICARE, MEDICAID ==
[~2019-09-14] VITALS: Ht 172.7 cm; Wt 88.4 kg
[2019-09-14 13:28] LABS: Basophils # (auto) 0 uL; Eosinophils # (auto) 0 uL; Hematocrit 41.7 % (41.0-53.0); Lymphocytes # (auto) 1.2 uL; Lymphocytes % (auto) 7.6 % (10.0-50.0); Mean Corpuscular Hemoglobin 27.8 pg (28.0-32.0); Mean Corpuscular Hgb Conc. 33.6 g/dL (32.0-36.0); Mean Corpuscular Volume 82.6 fL (80.0-100.0); Monocytes # (auto) 1.3 uL; Monocytes % (auto) 7.8 % (0.0-12.0); Neutrophils # (auto) 13.5 uL; Neutrophils % (auto) 84.6 % (37.0-80.0); Platelet Count (auto) 324 10^3/uL (140-450); Red Blood Cells 5.05 10^6/uL (4.5-5.90); Red Cell Distribution Width 14.1 % (11.8-14.3)
[2019-09-14 13:46] LABS: Albumin 2.5 g/dL (3.4-5.0); Anion Gap 12 (5-15); Blood Urea Nitrogen 21 mg/dL (7-18); Carbon Dioxide 23 mmol/L (21-32); Chloride 98 mmol/L (98-107); Glucose 98 mg/dL (74-106); Potassium 3.6 mmol/L (3.5-5.1); Sodium 133 mmol/L (136-145)
[2019-09-14 13:51] LABS: Alanine Aminotransferase 22 U/L (16-61); Alkaline Phosphatase 154 U/L (45-117); Aspartate Aminotransferase 25 U/L (15-37); BUN/Creatinine Ratio 15.9; Bilirubin, Total 1.5 mg/dL (0.2-1.0); GFR African American 71 mL/min; GFR Non-African American 59 mL/min; Total Protein 8.9 g/dL (6.4-8.2)
[2019-09-14] MEDS ORDERED: SODIUM CHLORIDE 0.9% 500 ML IVB ONE (13:58)
[2019-09-14] MEDS ORDERED: SODIUM CHLORIDE 0.9% 1,000 ML IV ONE (13:58)
[2019-09-14] MEDS ORDERED: HYDROmorphone HCL 2 MG/ML VL IV ONE (14:00)
[2019-09-14] MEDS ORDERED: metroNIDAZOLE 500MG/100ML 100 ML IV ONE (14:00)
[2019-09-14] MEDS ORDERED: cefTRIAXone 1GM/50ML D5W 50 ML IV ONE (14:00)
[2019-09-14] MEDS ORDERED: PROMETHAZINE HCL 25 MG/ML 1ML IV ONE ×2 (14:00→20:30)
[2019-09-14] MEDS ORDERED: MORPHINE SULFATE 4 MG/ML SYR/VIAL IV ONE ×2 (14:15→21:15)
[2019-09-14] MEDS ORDERED: SODIUM CHLORIDE 0.9% 1,000 ML IVB ONE (14:19)
[2019-09-14 14:29] LABS: Magnesium 2.5 mg/dL (1.6-2.6)
[2019-09-14 14:39] LABS: INR 1.16 (0.9-1.15); Partial Thromboplastin Time 32.8 sec (23.64-32.05)
[2019-09-14] MEDS ORDERED: IOHEXOL 300 MG/ML 100ML BOTTLE IJ ONE (15:29)
[2019-09-14] MEDS ORDERED: MORPHINE SULFATE 10 MG/ML INJ 1ML SDV IV ONE (19:45)
[2019-09-14] MEDS ORDERED: ONDANSETRON HCL 4 MG/2 ML VIAL IV ONE (19:45)
[2019-09-15] MEDS ORDERED: ONDANSETRON HCL 4 MG/2 ML VIAL IV ONE (01:15)
[2019-09-15] MEDS ORDERED: MORPHINE SULFATE 4 MG/ML SYR/VIAL IV ONE ×2 (01:15→18:30)
[2019-09-15] MEDS ORDERED: cefTRIAXone 1GM/50ML D5W 50 ML IV SCH ×2 (03:00→10:00)
--- NOTE | 2019-09-15 03:25 | NUR ---
Telemetry admit from ER MARIA GUADALUPE ELLIS admitted to Telemetry unit after SBAR received. Patient oriented to Pooja Crane, primary RN, unit, room, bed, and unit policies regarding patient care and visiting hours. Patient now on continuous telemetry monitoring, tele box 72# and telemetry reading on arrival to unit is NSR 90. Patient placed on bedside oxygen, weighed by bedscale and encouraged to call if they need something. All questions and concerns addressed, patient verbalized understanding. Note:
[2019-09-15] MEDS: metroNIDAZOLE 500MG/100ML 100 ML IV SCH ×3 (04:32→13:40)
[2019-09-15 05:00] VITALS: BP 122/71
[2019-09-15] MEDS ORDERED: SODIUM CHLORIDE 0.9% 1,000 ML IV SCH (05:30)
[2019-09-15] MEDS ORDERED: ACETAMINOPHEN 325 MG TAB PO PRN ×2 (05:30→15:30)
[2019-09-15] MEDS ORDERED: MORPHINE SULF INJ 2 MG/ML SYRINGE 1ML IV PRN (05:30)
[2019-09-15] MEDS ORDERED: metroNIDAZOLE 500MG/100ML 100 ML IV SCH (06:00)
--- NOTE | 2019-09-15 07:30 | NUR ---
Opening Shift Note Assumed care of patient, resting comfortably. No S/S of distress/SOB or pain on room air. Instructed on POC and to call for assist PRN, will continue to monitor for changes Q1hr and PRN. Bed in low and locked position, rails up x2, no-slip socks on. Linens removed at this time due to patient increased temperature and diaphoresis on assessment.
--- NOTE | 2019-09-15 08:49 | NUR ---
CALL TO [facility] TO FAX OVER INPATIENT TRANSFER PAPERWORK TO BE FILLED OUT HERE AND SENT BACK WITH CLINICAL INFORMATION, AWAITING FAX.
[2019-09-15 09:00] VITALS: BP 123/74
--- NOTE | 2019-09-15 09:46 | NUR ---
TEMP REASSESS 98.3 ORAL, EDUCATED PATIENT ON NEED TO MONITOR AND USE COOLING MEASURES WHEN APPROPRIATE, PATIENT VERBALIZES UNDERSTANDING.
--- NOTE | 2019-09-15 11:24 | NUR ---
NAUSEA/PAGE TO DR KEARNS PATIENT COMPLAINING OF NAUSEA, TELEPHONE ORDERS RECEIVED, WILL CARRY OUT ORDERED.
[2019-09-15] MEDS ORDERED: ONDANSETRON HCL 4 MG/2 ML VIAL IV PRN (11:30)
--- NOTE | 2019-09-15 12:00 | NUR ---
URINE SPECIMEN COLLECTED
--- NOTE | 2019-09-15 12:15 | NUR ---
INCREASED PAIN/MD NOTIFIED NOTIFIED MD OF PATIENTS INCREASED PAIN AND REQUEST FOR HIGHER DOSE PAIN MEDICATION, PATIENT STATES HE HAS A "HIGH TOLERANCE" AND THAT HIS "PAIN IS NOT RELIEVED". DR KEARNS NOTIFIED AND NO NEW ORDERS ADDED AT THIS TIME.
[2019-09-15 12:45] LABS: Urine Bacteria NONE SEEN /hpf (None Seen); Urine Blood 1+ /uL (Negative); Urine Mucus FEW (None Seen); Urine Specific Gravity 1.036 (1.001-1.035); Urine WBC 3 /hpf (0 - 3)
[2019-09-15 13:00] VITALS: BP 135/68
--- NOTE | 2019-09-15 13:24 | NUR ---
DR KEARNS AT BEDSIDE REVIEWED PATIENTS ER MEDICATION ADMINISTRATION AND UPPED MORPHINE FROM 2MG Q4 TO 4MG Q4, ALSO ADDED ORDER FOR [place] [facility] [place]
[2019-09-15] MEDS ORDERED: MORPHINE SULFATE 4 MG/ML SYR/VIAL IV PRN ×2 (13:30→15:30)
[2019-09-15] MEDS ORDERED: PHYTONADIONE (VIT K)10 MG/ML 1ML VIAL SUBCUT ONE (13:45)
[2019-09-15] MEDS ORDERED: PIPERACILLIN-TAZO 4.5GM 100 ML IV SCH ×2 (14:00→16:00)
[2019-09-15] MEDS ORDERED: VANCOMYCIN PER PHARMACY 0 MG IV SCH (14:00)
--- NOTE | 2019-09-15 14:26 | NUR ---
FAXED CLINICALS TO [facility] FAX [phone] PHONE [phone]
[2019-09-15] MEDS ORDERED: PROMETHAZINE HCL 25 MG/ML 1ML IV PRN (14:45)
--- NOTE | 2019-09-15 14:45 | NUR ---
PAIN: PATIENT REQUESTING TO SPEAK WITH CHARGE NURSE DUE TO PAIN NOT BEING MANAGED BY CURRENT PAIN MEDICATION. I SPOKE WITH PATIENT AND INFORMED HIM THAT DR. KEARNS IS AWARE OF HIS PAIN AND HAD INCREASED HIS MORPHINE FROM 2 MG TO 4 MG, PATIENT STATES HE FELT VERY LITTLE RELIEF FROM THE MORPHINE AND IS REQUESTING A LARGER DOSE, PATIENTS STATES HE HAD 8 MG PREVIOUSLY AND THAT HELPED. I SPOKE WITH DR. KEARNS REGARDING PATIENT CONCERN, PER DR. KEARNS HE CAN NOT INCREASE THE DOSE ANY HIGHER WITHOUT RISKING COMPROMISING THE PATIENTS RESPIRATORY DRIVE. PATIENT HAS ALLERGY TO NSAIDS SO TORADOL IS NOT AN OPTION EITHER. I UPDATED THE PATIENT ON WHAT I HAD SPOKE WITH THE PATIENT, AND PROVIDED HIM WITH ANOTHER ICE PACK. PATIENT STILL REQUESTING AN INCREASE IN DOSE OR EXTRA PAIN MEDICATION PRIOR TO TRANSFER TO [facility].
[2019-09-15] MEDS ORDERED: KETOROLAC TROMETH 15 mg/ml 1ML VL IV PRN (15:00)
[2019-09-15] MEDS ORDERED: VANCOMYCIN 1GM/250ML 250 ML IV SCH (15:00)
--- NOTE | 2019-09-15 15:30 | NUR ---
OFFER TYLENOL DR BRADFORD ORDERED TYLENOL AN IN BETWEEN MEDICATION TO ALTERNATE BETWEEN MORPHINE HOWEVER PATIENT REFUSED. WILL REASSESS PAIN.
--- NOTE | 2019-09-15 16:10 | NUR ---
CALL FROM [facility] POSSIBLE BED AVAILABLE, PENDING TRANSFER AND REPATRIATION AGREEMENT PALM AND BACK FORGER SIGNATURE, PALM AND BACK FORGER IN CODE AT TIME OF INITIAL PACKET FAXING, WILL OBTAIN.
--- NOTE | 2019-09-15 16:13 | NUR ---
FAXED OVER TO [facility] TRANSFER AND REPATRIATION AGREEMENT SIGNED.
--- NOTE | 2019-09-15 16:35 | NUR ---
PAGE TO IRRIGATION SUPERVISOR AND DRYING SUPERVISOR COOKING CASING SPOKE TO DEEJAY AT [facility], PATIENT IS NEXT UP ON LIST, IN CASE OF ACCEPTANCE AND BED AVAILABLE TONIGHT, PAGE SENT OUT TO [facility] FOR WILL-CALL AMBULANCE TRANSPORTATION. AWAITING CALL BACK.
[2019-09-15 17:05] VITALS: BP_SYST 127; BP_SYST 94; BP_DIAS 57; BP_DIAS 76
--- NOTE | 2019-09-15 18:00 | NUR ---
BED AVAILABLE SPOKE TO DEEJAY AT TRANSFER CENTER BED AVAILABLE AT [address] AD[address]ESS: [address] [place] [address] DUSTIN RODGERS, REPORT TO BE CALLED TO [phone] Betzaida LARSEN. FAX SENT TO [facility] FOR AUTHORIZATION FOR TRANSPORTATION.
--- NOTE | 2019-09-15 18:25 | NUR ---
PAGE TO HOSPITALIST PATIENT REQUESTING MEDICATION FOR PRIOR TO TRANSPORT, ONE TIME ORDER OBTAINED FROM RESOURCE DEVELOPMENT DIRECTOR SALBINO 4MG MORPHINE, WILL CARRY OUT PRIOR TO DISCHARGE
--- NOTE | 2019-09-15 18:32 | NUR ---
[facility] CALL BACK TRANSPORT IN 20-30 MINUTES
--- NOTE | 2019-09-15 19:18 | NUR ---
ATTEMPT TO CALL REPORT TO [facility] [place] [place] N[facility] SHIFT NURSE UNAVAILABLE AT THIS TIME, WILL ATTEMPT TO CALL AGAIN IN 20 MINUTES.
--- NOTE | 2019-09-15 19:19 | NUR ---
DISCHARGE Discharge instructions given as ordered. Encourage to follow up with PMD as instructed. All questions and concerns addressed. Patient verbalized understanding. Medication reconciliation form completed and copy given to patient. IV remained intact on discharge for acute care hospital transfer. Telemetry unit returned to ICU. Patient taken to vehicle via [facility] med[facility], medicated prior to discharge with ordered morphine, no complaints.
--- NOTE | 2019-09-15 19:44 | NUR ---
REPORT CALLED TO I, SPOKE TO MAURICE CHAN, PATIENT TO BE ACCEPTED TO BED [address], NOTIFIED OF PAIN MEDICATION REGIMEN, AND LAST DOSES OF ANTIBIOTICS, ALL OTHER QUESTIONS ANSWERED.
--- NOTE | 2019-09-16 11:59 | NUR ---
Weekend transition lead-09/15 I received a page from nurse Michelle letting me know that [facility] [place]. I provided Michelle with the phone number to [facility] and let her know that because patient is Medicare, [facility] will have to fax her a form that needs to be filled out and faxed back before they will set up transportation.
== END 2019-09-15 19:18 | disposition short-term general hospital (02) | DRG 871 ==
LOC: EDBD 12:17 → EDUNIT# 12:17 → ER 12:25 → TELE-WESTW 12:26
PROVIDERS: ADMIT Hospitalist; ATTEND Hospitalist
DX: A41.9 Sepsis, unspecified organism (principal); K75.0 Abscess of liver; N17.0 Acute kidney failure with tubular necrosis; E44.0 Moderate protein-calorie malnutrition; E87.1 Hypo-osmolality and hyponatremia; I12.9 Hypertensive chronic kidney disease with stage 1 through stage 4 chronic kidney disease, or unspecified chronic kidney disease; N18.9 Chronic kidney disease, unspecified; K57.30 Diverticulosis of large intestine without perforation or abscess without bleeding; N40.0 Benign prostatic hyperplasia without lower urinary tract symptoms; Z80.9 Family history of malignant neoplasm, unspecified; Z82.3 Family history of stroke; Z85.6 Personal history of leukemia; Z90.49 Acquired absence of other specified parts of digestive tract
CPT/HCPCS: 36415; 71045; 74176; 74177; 80053; 81001; 82962; 83605; 83690; 83735; 84484; 85025; 85610; 85730; 87040; 87081; 96365; 96366; 96367; 96368; 96375; 96376; 99291; G0378; J0696; J2405; J2543; J3430; J3490

== ENCOUNTER → 2019-12-04 | Outpatient (CLI) | payer MEDICARE, MEDICAID ==
[2019-12-04 13:48] LABS: Basophils # (auto) 0.1 10 ^3/uL (0-0.2); Basophils % (auto) 1.1 % (0.0-2.0); Eosinophils # (auto) 0.2 10 ^3/uL (0-0.8); Eosinophils % (auto) 2.5 % (0.0-7.0); Hematocrit 48.4 % (41.0-53.0); Lymphocytes # (auto) 2.5 10 ^3/uL (0.4-5.4); Lymphocytes % (auto) 35.5 % (10.0-50.0); Mean Corpuscular Hemoglobin 28.5 pg (28.0-32.0); Mean Corpuscular Hgb Conc. 33.1 g/dL (32.0-36.0); Monocytes # (auto) 0.7 10 ^3/uL (0-1.3); Monocytes % (auto) 10.4 % (0.0-12.0); Neutrophils # (auto) 3.5 10 ^3/uL (1.6-8.6); Neutrophils % (auto) 50.5 % (37.0-80.0); Nucleated Red Blood Cells % 0.1 %; Platelet Count (auto) 233 10^3/uL (140-450); Red Blood Cells 5.63 10^6/uL (4.5-5.90); Red Cell Distribution Width 15.5 % (11.8-14.3); White Blood Cell 6.9 10^3/uL (4.4-10.8)
[2019-12-04 14:26] LABS: Albumin 3.4 g/dL (3.4-5.0); Calcium 8.3 mg/dL (8.5-10.1); Potassium 4.2 mmol/L (3.5-5.1)
[2019-12-04 14:29] LABS: Bilirubin, Total 0.3 mg/dL (0.2-1.0); Total Protein 7.8 g/dL (6.4-8.2)
== END | disposition home or self-care (01) ==
LOC: LAB 13:29
DX: K75.0 Abscess of liver (principal)
CPT/HCPCS: 36415; 80053; 85025

== ENCOUNTER 2020-12-11 23:43 | Emergency (ER) | payer MEDICARE, MEDICAID ==
[~2020-12-11] VITALS: Ht 172.7 cm; Wt 86.6 kg
[2020-12-12 00:30] LABS: Basophils # (auto) 0 10 ^3/uL (0-0.2); Basophils % (auto) 0.5 % (0.0-2.0); Eosinophils # (auto) 0 10 ^3/uL (0-0.8); Eosinophils % (auto) 0.4 % (0.0-7.0); Hematocrit 45.4 % (41.0-53.0); Hemoglobin 15.2 g/dL (13.5-17.5); Lymphocytes % (auto) 11.8 % (10.0-50.0); Mean Corpuscular Hemoglobin 30.1 pg (28.0-32.0); Mean Corpuscular Hgb Conc. 33.6 g/dL (32.0-36.0); Mean Corpuscular Volume 89.7 fL (80.0-100.0); Monocytes # (auto) 0.8 10 ^3/uL (0-1.3); Monocytes % (auto) 9.3 % (0.0-12.0); Neutrophils # (auto) 6.5 10 ^3/uL (1.6-8.6); Platelet Count (auto) 196 10^3/uL (140-450); Red Blood Cells 5.07 10^6/uL (4.5-5.90); Red Cell Distribution Width 13.8 % (11.8-14.3); White Blood Cell 8.3 10^3/uL (4.4-10.8)
[2020-12-12 00:47] LABS: Albumin 3.8 g/dL (3.4-5.0); Anion Gap 5 (5-15); Blood Urea Nitrogen 21 mg/dL (7-18); Calcium 8.5 mg/dL (8.5-10.1); Carbon Dioxide 23 mmol/L (21-32); Chloride 111 mmol/L (98-107); Glucose 122 mg/dL (74-106); Potassium 3.8 mmol/L (3.5-5.1); Sodium 139 mmol/L (136-145)
[2020-12-12 00:50] LABS: BUN/Creatinine Ratio 15.6; GFR African American 69 mL/min; GFR Non-African American 57 mL/min
[2020-12-12 01:06] LABS: Alanine Aminotransferase 217 U/L (16-61); Alkaline Phosphatase 136 U/L (45-117); Aspartate Aminotransferase 328 U/L (15-37); Bilirubin, Total 1.9 mg/dL (0.2-1.0); Total Protein 7.7 g/dL (6.4-8.2)
[2020-12-12] MEDS ORDERED: KETOROLAC TROMETH 30 MG/ML 1ML VIAL IV ONE (03:45)
[2020-12-12] MEDS ORDERED: ONDANSETRON HCL 4 MG/2 ML VIAL IV ONE (03:45)
[2020-12-12 04:27] LABS: Urine Amorphous Crystal FEW /hpf (None Seen); Urine Bacteria NONE SEEN /hpf (None Seen); Urine Blood Negative /uL (Negative); Urine Mucus FEW (None Seen); Urine WBC 2 /hpf (0 - 3)
[2020-12-12] MEDS ORDERED: SODIUM CHLORIDE 0.9% 1,000 ML IV ONE (05:45)
[2020-12-12] MEDS ORDERED: HYDROcodone-ACET 5/325MG TAB PO ONE (05:45)
[2020-12-12 06:31] VITALS: BP 127/79
== END 2020-12-12 06:36 | disposition home or self-care (01) ==
LOC: ER 23:43
DX: K57.32 Diverticulitis of large intestine without perforation or abscess without bleeding (principal); E78.00 Pure hypercholesterolemia, unspecified; I10 Essential (primary) hypertension; Z88.6 Allergy status to analgesic agent; Z79.899 Other long term (current) drug therapy; Z90.49 Acquired absence of other specified parts of digestive tract
CPT/HCPCS: 36415; 74176; 80053; 81001; 84484; 85025; 93005; 96361; 96374; 96375; 99285; J1885; J2405

== ENCOUNTER → 2021-07-13 | Day surgery (SDC) | payer MEDICARE, MEDICAID ==
[2021-07-08 15:31] LABS: Urine WBC None Seen /hpf (0 - 3)
[2021-07-08 15:34] LABS: Basophils # (auto) 0.1 10 ^3/uL (0-0.2); Basophils % (auto) 1.4 % (0.0-2.0); Eosinophils # (auto) 0.1 10 ^3/uL (0-0.8); Eosinophils % (auto) 1.3 % (0.0-7.0); Hematocrit 47.5 % (41.0-53.0); Hemoglobin 15.6 g/dL (13.5-17.5); Lymphocytes # (auto) 1.5 10 ^3/uL (0.4-5.4); Lymphocytes % (auto) 24.6 % (10.0-50.0); Mean Corpuscular Hemoglobin 29.6 pg (28.0-32.0); Mean Corpuscular Hgb Conc. 32.9 g/dL (32.0-36.0); Mean Corpuscular Volume 89.9 fL (80.0-100.0); Monocytes # (auto) 0.4 10 ^3/uL (0-1.3); Monocytes % (auto) 6.7 % (0.0-12.0); Neutrophils # (auto) 4.1 10 ^3/uL (1.6-8.6); Nucleated Red Blood Cells % 0.1 %; Red Blood Cells 5.28 10^6/uL (4.5-5.90); Red Cell Distribution Width 13.5 % (11.8-14.3); White Blood Cell 6.1 10^3/uL (4.4-10.8)
[2021-07-08 15:52] LABS: Urine Bacteria FEW /hpf (None Seen); Urine Blood Negative /uL (Negative); Urine Mucus FEW (None Seen); Urine Specific Gravity 1.019 (1.001-1.035)
[2021-07-08 16:20] LABS: Albumin 3.9 g/dL (3.4-5.0); Calcium 8.7 mg/dL (8.5-10.1)
[2021-07-08 16:23] LABS: BUN/Creatinine Ratio 11.6; Bilirubin, Total 0.5 mg/dL (0.2-1.0); Total Protein 7.8 g/dL (6.4-8.2)
[~2021-07-13] VITALS: Ht 172.7 cm; Wt 85.3 kg
[~2021-07-13] MED LIST changes: +BACL10TA PO; +BUPIVACAINE 0.5% MPF INJ 30ML SDV IJ ONE; -BUPR100T14 PO; +DexAMETHasone SOD PHOS 10MG/1ML VIAL INJ ONE; +GLYCOPYRROLATE 0.2 MG/ML 1ML VIAL ONE; +HYDROmorphone HCL 2 MG/ML VL IV PRN; +MEPERIDINE HCL (25 MG/ML) 1ML VIAL ONE; +METOCLOPRAMIDE HCL 5MG/ml INJ 2ml VIAL IV PRN; +MIDAZOLAM HCL 2MG/2ML 2ml VIAL (1mg/ml) ONE; +MORPHINE SULFATE 4 MG/ML SYR/VIAL IV PRN; +NEOSTIGMINE 1 MG/ML INJ (10mg/10ML VIAL) ONE; -OME20T PO; +ONDANSETRON HCL 4 MG/2 ML VIAL ONE; +PANT40TA2 PO; +PROPOFOL 10 MG/ML 20 ML IV ONE; +ROCURONIUM 10MG/ML 10ML VIAL IV ONE; +TOPI100T29 PO; +URSO1TAB7 PO; +ceFAZolin 1GM/50ML 100 ML IV ONE; +fentaNYL CITRATE 100 MCG/2 ML VL ONE; +fentaNYL CITRATE 5 ML ONE
[2021-07-13 13:45] VITALS: BP 151/76
== END | disposition home or self-care (01) ==
LOC: SUR 08:39
PROVIDERS: ATTEND Orthopaedic Surgery Sports Medicine
DX: S46.211A Strain of muscle, fascia and tendon of other parts of biceps, right arm, initial encounter (principal); I11.0 Hypertensive heart disease with heart failure; I50.30 Unspecified diastolic (congestive) heart failure; G43.909 Migraine, unspecified, not intractable, without status migrainosus; G40.909 Epilepsy, unspecified, not intractable, without status epilepticus; G47.33 Obstructive sleep apnea (adult) (pediatric); K21.9 Gastro-esophageal reflux disease without esophagitis; F41.9 Anxiety disorder, unspecified; Z98.890 Other specified postprocedural states; Z79.899 Other long term (current) drug therapy; Z88.6 Allergy status to analgesic agent; Z20.822 Contact with and (suspected) exposure to COVID-19; Z80.42 Family history of malignant neoplasm of prostate; Z82.49 Family history of ischemic heart disease and other diseases of the circulatory system; X58.XXXA Exposure to other specified factors, initial encounter; Y92.89 Other specified places as the place of occurrence of the external cause; Y93.89 Activity, other specified; Y99.8 Other external cause status
CPT/HCPCS: 24342; 36415; 73090; 76000; 80053; 81001; 85025; C1713; J0690; J1100; J2175; J2250; J2405; J2704; J3010; J3490; U0003

== ENCOUNTER 2021-11-23 06:57 | Day surgery (SDC) | payer MEDICARE, MEDICAID ==
[2021-11-22 09:35] LABS: Basophils # (auto) 0.1 10 ^3/uL (0-0.2); Basophils % (auto) 1.3 % (0.0-2.0); Eosinophils # (auto) 0.2 10 ^3/uL (0-0.8); Eosinophils % (auto) 4.2 % (0.0-7.0); Hematocrit 48.1 % (41.0-53.0); Hemoglobin 16.2 g/dL (13.5-17.5); Lymphocytes # (auto) 1.6 10 ^3/uL (0.4-5.4); Lymphocytes % (auto) 28.6 % (10.0-50.0); Mean Corpuscular Hemoglobin 29.9 pg (28.0-32.0); Mean Corpuscular Hgb Conc. 33.8 g/dL (32.0-36.0); Mean Corpuscular Volume 88.7 fL (80.0-100.0); Monocytes # (auto) 0.5 10 ^3/uL (0-1.3); Monocytes % (auto) 8.4 % (0.0-12.0); Neutrophils # (auto) 3.2 10 ^3/uL (1.6-8.6); Neutrophils % (auto) 57.5 % (37.0-80.0); Nucleated Red Blood Cells % 0.1 %; Red Blood Cells 5.43 10^6/uL (4.5-5.90); Red Cell Distribution Width 13.8 % (11.8-14.3); White Blood Cell 5.6 10^3/uL (4.4-10.8)
[2021-11-22 09:50] LABS: INR 0.96 (0.9-1.15); Partial Thromboplastin Time 28.8 sec (23.6-33.0)
[2021-11-22 09:57] LABS: Potassium 4.4 mmol/L (3.5-5.1); Urine Amorphous Crystal FEW /hpf (None Seen); Urine Bacteria NONE SEEN /hpf (None Seen); Urine Blood Negative /uL (Negative); Urine Mucus FEW (None Seen); Urine Specific Gravity 1.022 (1.001-1.035); Urine WBC 5 /hpf (0 - 3)
[2021-11-22 10:09] LABS: Albumin 3.8 g/dL (3.4-5.0); BUN/Creatinine Ratio 10.4; Bilirubin, Total 0.5 mg/dL (0.2-1.0); Calcium 9.1 mg/dL (8.5-10.1)
[~2021-11-23] VITALS: Ht 172.7 cm; Wt 88.5 kg
[~2021-11-23 06:57] MED LIST changes: -BUPIVACAINE 0.5% MPF INJ 30ML SDV IJ ONE; -DexAMETHasone SOD PHOS 10MG/1ML VIAL INJ ONE; -GLYCOPYRROLATE 0.2 MG/ML 1ML VIAL ONE; -HYDROmorphone HCL 2 MG/ML VL IV PRN; -MEPERIDINE HCL (25 MG/ML) 1ML VIAL ONE; -METOCLOPRAMIDE HCL 5MG/ml INJ 2ml VIAL IV PRN; -MIDAZOLAM HCL 2MG/2ML 2ml VIAL (1mg/ml) ONE; -MORPHINE SULFATE 4 MG/ML SYR/VIAL IV PRN; -NEOSTIGMINE 1 MG/ML INJ (10mg/10ML VIAL) ONE; -ONDANSETRON HCL 4 MG/2 ML VIAL ONE; -PROPOFOL 10 MG/ML 20 ML IV ONE; -ROCURONIUM 10MG/ML 10ML VIAL IV ONE; -ceFAZolin 1GM/50ML 100 ML IV ONE; -fentaNYL CITRATE 100 MCG/2 ML VL ONE; -fentaNYL CITRATE 5 ML ONE
[2021-11-23] MEDS ORDERED: ROCURONIUM 10MG/ML 10ML VIAL IV ONE (06:58)
[2021-11-23] MEDS ORDERED: SUCCINYLCHOLINE 20mg/ml 100mg/5ml SYRINGE IV ONE (06:58)
[2021-11-23] MEDS ORDERED: BUPIVACAINE HCL 50 ML ONE (07:24)
[2021-11-23] MEDS ORDERED: EPINEPHrine HCL 1 MG/1 ML AMP ONE (07:24)
[2021-11-23] MEDS ORDERED: MEPERIDINE HCL (25 MG/ML) 1ML VIAL ONE (07:29)
[2021-11-23] MEDS ORDERED: MIDAZOLAM HCL 2MG/2ML 2ml VIAL (1mg/ml) ONE (07:29)
[2021-11-23] MEDS ORDERED: SODIUM CHLORIDE LOCK 10 ML ONE (07:29)
[2021-11-23] MEDS ORDERED: DexAMETHasone SOD PHOS 10MG/1ML VIAL INJ ONE (07:29)
[2021-11-23] MEDS ORDERED: ONDANSETRON HCL 4 MG/2 ML VIAL ONE (07:29)
[2021-11-23] MEDS ORDERED: GLYCOPYRROLATE 0.2 MG/ML 1ML VIAL ONE (07:29)
[2021-11-23] MEDS ORDERED: fentaNYL CITRATE 5 ML ONE ×2 (07:29→09:12)
[2021-11-23] MEDS ORDERED: NEOSTIGMINE 1 MG/ML INJ (10mg/10ML VIAL) ONE (07:29)
[2021-11-23] MEDS ORDERED: METOCLOPRAMIDE HCL 5MG/ml INJ 2ml VIAL IV PRN (07:45)
[2021-11-23] MEDS ORDERED: fentaNYL CITRATE 100 MCG/2 ML VL IV PRN (07:45)
[2021-11-23] MEDS ORDERED: ceFAZolin 1GM/50ML 100 ML IV ONE (07:48)
[2021-11-23] MEDS: MORPHINE SULFATE 4 MG/ML SYR/VIAL IV PRN ×2 (10:30→11:00)
[2021-11-23] MEDS ORDERED: PERCOT PO (10:32)
[2021-11-23] MEDS ORDERED: GABA300C PO (10:44)
[2021-11-23] MEDS ORDERED: TAM04C PO (10:44)
[2021-11-23] MEDS ORDERED: MAGN400T28 PO (10:44)
[2021-11-23] MEDS ORDERED: MELA3TAB27 PO (10:44)
[2021-11-23 11:00] VITALS: BP 140/80
== END 2021-11-23 11:10 | disposition home or self-care (01) ==
LOC: SUR 06:57
PROVIDERS: ATTEND Orthopaedic Surgery Sports Medicine
DX: M75.122 Complete rotator cuff tear or rupture of left shoulder, not specified as traumatic (principal); S43.432A Superior glenoid labrum lesion of left shoulder, initial encounter; M75.42 Impingement syndrome of left shoulder; G89.29 Other chronic pain; M65.9 Synovitis and tenosynovitis, unspecified; I10 Essential (primary) hypertension; G40.909 Epilepsy, unspecified, not intractable, without status epilepticus; K21.9 Gastro-esophageal reflux disease without esophagitis; G43.909 Migraine, unspecified, not intractable, without status migrainosus; M10.9 Gout, unspecified; I20.9 Angina pectoris, unspecified; G47.30 Sleep apnea, unspecified; F41.9 Anxiety disorder, unspecified; Z98.890 Other specified postprocedural states; Z79.899 Other long term (current) drug therapy; Z88.6 Allergy status to analgesic agent; Z90.49 Acquired absence of other specified parts of digestive tract; Z80.42 Family history of malignant neoplasm of prostate; Z80.6 Family history of leukemia
CPT/HCPCS: 29826; 29827; 36415; 80053; 81001; 85025; 85610; 85730; C1713; J0171; J0330; J0690; J1100; J2175; J2250; J2270; J2405; J3010; J3490; U0003; A4565

== ENCOUNTER → 2022-05-09 | Outpatient (CLI) | payer MEDICARE, MEDICAID ==
[~2022-05-09] MED LIST changes: +GABA300C PO; +MAGN400T28 PO; +MELA3TAB27 PO; +PERCOT PO; -SUMA50TA2 PO; +TAM04C PO; -URSO1TAB7 PO
== END | disposition home or self-care (01) ==
LOC: LAB 12:36
PROVIDERS: ATTEND Urology
DX: R97.20 Elevated prostate specific antigen [PSA] (principal)
CPT/HCPCS: 84153